=== PATIENT | female | born 1955 | race Caucasian/White ===

== ENCOUNTER 2016-05-27 04:07 | Emergency (ER) | payer BC ==
--- NOTE | 2016-05-31 15:07 | ER ---
ADMIT: 05/27/2016 RM/LOC: ER [facility] MR#: [id number] [place], [place] [id number] SONAL JALLOH [address] [place] [address] Emergency Room Report SEX: F AGE: 60 : 1955 DATE: 05/27/2016 TIME: 040 Please refer to my T-sheet for complete H and P. HISTORY OF PRESENT ILLNESS: Briefly, the patient is 60-year-old, comes in with pain and burning with urination, started 3 hours ago. She noticed a little bit of blood in it too. She has had no other complaints. No fevers, no back pain. PHYSICAL EXAMINATION: VITAL SIGNS: Stable. ABDOMEN: Mildly tender in the suprapubic. No rebound or guarding. No pain at McBurney's point. EMERGENCY DEPARTMENT COURSE: UA came back, 3+ leukocyte esterase, 3+ blood, 67 white cells. It was sent for culture. We gave her first dose of Bactrim and Pyridium here. ASSESSMENT: Acute cystitis. PLAN: Bactrim DS b.i.d. for 5 days. Pyridium 200 t.i.d. for 2 days. Fluids, return if worse. Follow up with Fabiana. Recheck urine in about a week. Kyle Brumfield MD/ karley JOB #: [id number] CC: Kyle Brumfield MD, Attending Physician Devin Jung MD, Family Physician
== END 2016-05-27 05:00 | disposition home or self-care (01) ==
LOC: ER 04:07
DX: N30.90 Cystitis, unspecified without hematuria (principal); E78.5 Hyperlipidemia, unspecified; E11.9 Type 2 diabetes mellitus without complications; E78.00 Pure hypercholesterolemia, unspecified; Z90.49 Acquired absence of other specified parts of digestive tract